=== PATIENT | female | born 1980 | race Caucasian/White ===

== ENCOUNTER 2021-12-01 16:35 | Emergency (ER) | payer OTHER ==
[~2021-12-01] VITALS: Ht 160 cm; Wt 93.9 kg
[2021-12-01 16:37] VITALS: BP 170/88
--- NOTE | 2021-12-01 16:50 | NUR ---
PT AMB TO BED 3.
--- NOTE | 2021-12-01 17:03 | NUR ---
JESÚS HONEYCUTT AT BEDSIDE
[2021-12-01] MEDS ORDERED: KETOROLAC 30 MG/ML VIAL IM ONE (17:15)
--- NOTE | 2021-12-01 17:19 | NUR ---
PATIENT WAS TAKEN TO RADIOLOGY BY BILINGUAL STUDENT TUTOR
--- NOTE | 2021-12-01 17:29 | NUR ---
PT TAKEN TO ER BED 3 VIA W/C.
[2021-12-01] MEDS ORDERED: NAPR-54 PO (17:44)
[2021-12-01] MEDS ORDERED: CYCL-711 PO (17:44)
[2021-12-01] MEDS ORDERED: LID5T TP (17:44)
[2021-12-01 18:14] VITALS: BP 170/88
--- NOTE | 2021-12-01 18:14 | NUR ---
Patient discharged with INFORMATION FOR RADICULAR PAIN, LUMBOSACRAL STRAIN AND SCIATICA REHAB v/s stable. Written and verbal after care instructions given. Patient alert, oriented and verbalized understanding of instructions. Ambulatory with steady gait. All questions addressed prior to discharge. ID band removed. Patient advised to follow up with PMD. Rx of CYCLOBENZAPRINE HCL, LIDOCAINE HYD AND NAPROXEN given. Opportunity to ask questions provided and answered.
--- NOTE | 2021-12-01 18:24 | NUR ---
The patient's care was reviewed and supervised by Larissa Diallo RN.
== END 2021-12-01 18:14 | disposition home or self-care (01) ==
LOC: MED 16:35
DX: S39.012A Strain of muscle, fascia and tendon of lower back, initial encounter (principal); X58.XXXA Exposure to other specified factors, initial encounter; Y93.89 Activity, other specified; Y92.89 Other specified places as the place of occurrence of the external cause; Y99.8 Other external cause status
CPT/HCPCS: 72100; 81002; 81025; 96372; 99283; J1885